=== PATIENT | male | born 1960 | race Caucasian/White ===

== ENCOUNTER → 2024-12-04 06:55 | Outpatient (REF) | payer OTHER, SELFPAY | LOC: RAD 06:55 | PROVIDERS: ATTENDING PHYSICIAN Nurse Practitioner Family; FAMILY PHYSICIAN Internal Medicine | DX: R22.0 Localized swelling, mass and lump, head (principal) | CPT/HCPCS: 70488; Q9967 ==

== ENCOUNTER → 2024-12-21 08:28 | Outpatient (REF) | payer OTHER, SELFPAY | LOC: RAD 08:28 | PROVIDERS: ATTENDING PHYSICIAN Internal Medicine Hematology & Oncology; FAMILY PHYSICIAN Internal Medicine | DX: C69.32 Malignant neoplasm of left choroid (principal); R22.0 Localized swelling, mass and lump, head | CPT/HCPCS: 71260; 74177; Q9967 ==

== ENCOUNTER → 2024-12-25 08:03 | Outpatient (REF) | payer OTHER, SELFPAY ==
[2024-12-25 08:47] VITALS: BP 177/80; BP_SYST 91; BMI 34.9
[2024-12-25 10:18] VITALS: BP 151/85
== END ==
LOC: RADI 08:03
PROVIDERS: ATTENDING PHYSICIAN Internal Medicine Hematology & Oncology; FAMILY PHYSICIAN Internal Medicine
DX: C43.39 Malignant melanoma of other parts of face (principal)
CPT/HCPCS: 88305; 20206; 76942; 88333; 88341; 88342; 99152

== ENCOUNTER → 2025-01-15 07:41 | Outpatient (REF) | payer OTHER, SELFPAY | LOC: PET 07:41 | PROVIDERS: ATTENDING PHYSICIAN Internal Medicine Hematology & Oncology | DX: C43.39 Malignant melanoma of other parts of face (principal) | CPT/HCPCS: 78816; A9552 ==

== ENCOUNTER 2025-04-19 12:48 | Inpatient (IN) | payer OTHER, SELFPAY ==
[2025-04-19 09:28] VITALS: BP 99/58
--- NOTE | 2025-04-19 09:41 | ED.GENMED ---
History of Present Illness
<Aaron Porter PA-C - Last Filed: 04/19/25 15:22>
General
Chief Complaint: Social Service Referral
Source: records and ambulance crew
Time Seen by Provider: 04/19/25 09:34
History of Present Illness
History of Present Illness:
64-year-old male with past medical history of malignant melanoma, currently on home hospice, presenting to the ER for inpatient hospice referral. Patient was reportedly very agitated at home, was treated with 8 mg of Dilaudid, 4 mg of Haldol and 4
mg of Ativan just prior to arrival. At time of my exam no family currently present but is reportedly on her way. Per EMS family was requesting inpatient hospice care as family was unable to manage at home.
Past History
<Aaron Porter PA-C - Last Filed: 04/19/25 15:22>
Past History
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
ED Past Surgical History: Orthopedic (Lumbar laminectomy 2016) and Other (Left thoracotomy 2014 for empyema; peptic ulcer surgery 2017)
Social History
Tobacco: Non-smoker
Alcohol: None
Drug: None
Personal:
Living: with family
Employment: Employed
Family History
Family History: Other (Noncontributory)
Review of Systems
<Aaron Porter PA-C - Last Filed: 04/19/25 15:22>
Review of Systems
All Other Systems: ROS reviewed and negative except as documented in HPI and ROS
Phy Exam
<Aaron Porter PA-C - Last Filed: 04/19/25 15:22>
Physical Exam
Physical Exam:
GENERAL: Obtunded, appears older than stated age
EYE: conjunctiva clear, left periorbital/maxillary edema
Head: Normocephalic atraumatic
NECK: Supple
ENT: Dry mucous membranes
LUNGS: Tachypneic
NEUROLOGICAL: Obtunded
SKIN: Hot to the touch, skin intact.
MUSCULOSKELETAL: well perfused.
PSYCH: Unable to assess
Scores
<Aaron Porter PA-C - Last Filed: 04/19/25 15:22>
Heart Failure Risk
Heart Failure Risk Score: Not Applicable
Heart Score for Chest Pain Patients
STEMI patient?: Not applicable
Withdrawal Assessment of Alcohol
Withdrawal Assessment Completed?: Not applicable
Course
<Aaron Porter PA-C - Last Filed: 04/19/25 15:22>
Orders/Labs/Results
Orders:
Orders
04/19/25 09:35
Case Management Consult ONCE
Case Management Consult: Hospice
Hospice: Evaluation and treat
04/19/25 09:54
Morphine Sulfate 4 mg IV NOW STA
04/19/25 11:06
Morphine Sulfate 4 mg .ROUTE .STK-MED ONE
04/19/25 11:07
Morphine Sulfate 4 mg IV NOW STA
04/19/25 11:29
Morphine Sulfate 4 mg IV NOW STA
04/19/25 12:09
Morphine Sulfate 4 mg IV NOW STA
04/19/25 12:11
Admit/Transfer Patient As Directed
Co-Sign Provider:
Level of Care: Inpatient admission
Assign to:: Medical/Surgical
Physician / Group: hospitalist-Jeovany
Diagnosis: inpt hospice
Reason for Hospitalization: unable to keep comfortable at home--IV morphine drip
Expected length of stay greater than two midnights?: Yes
ELOS- Estimated Length of Stay in days: 3
I certify the patient meets the requirements for IP care: Yes
04/19/25 12:12
Code Status As Directed
Resuscitation Status: Do not resuscitate
Reached after discussion with pt or family/Healthcare POA: Yes
PRN Pain Medication Management As Directed
May give lesser potent ordered pain med per pt: Yes
preference::
Protocol:: Medication orders for pain may be administered in a
manner that supports deferring to patient preference
when the pt is:
- Requesting an ordered lesser potent pain medication.
Least to most potent pain medications are defined
as: acetaminophen < NSAID < tramadol < opioids
(morphine, oxycodone, hydromorphone).
- Requesting a lesser dose of the same medication IF
ORDERED.
- Requesting a less intrusive route of administration
if both routes are prescribed by the provider (PO <
IV).
04/19/25 12:13
DNR Bracelet Application ONCE
04/19/25 12:56
Acetaminophen [Tylenol/Feverall] 650 mg RECTAL Q4HPRN PRN
Bisacodyl [Dulcolax] 10 mg RECTAL DAILYPRN PRN
Glycopyrrolate [Robinul] 0.2 mg IV Q4HPRN PRN
Haloperidol Lactate [Haldol] 1 mg IV Q4HPRN PRN
Morphine Sulfate 100 mg/100 ml [Morphine] 100 mg in 100 ml IV PER PROTOCOL
Begin protocol on step:: 4
Ondansetron Injectable [Zofran] 4 mg IV Q6HPRN PRN
04/19/25 12:56
VTE Contraindication Routine
VTE Mechanical Device Contraindication: Comfort Care mgmt
Pharmocologic Contraindication: Comfort Care mgmt
Activity As Directed
Activity Level: Bedrest
Comfort Measures As Directed
Comment: Pain and Dyspnea assessment every 4 hours
End of Life Symptom Assessment Q4
Vital Signs As Directed
Frequency: Per unit guidelines
04/19/25 13:06
diazePAM [Valium Injection] 5 mg IV Q2HPRN PRN
04/19/25 13:07
Morphine Sulfate See Protocol IV [id number] PRN
Begin protocol on step:: refer to Morphine infusion order
04/19/25 Dinner
Clear Liquid
At Your Request: Full Participation
Does patient need a safe tray?: No
Vital Signs
Initial and Last Documented VS:
Initial Vital Signs
Temp Pulse Resp BP Pulse Ox
101.5 F H 124 28 99/58 87
04/19/25 09:28 04/19/25 09:28 04/19/25 09:28 04/19/25 09:28 04/19/25 09:28
Last Documented Vital Signs
Temp Pulse Resp BP Pulse Ox
101.2 F H 124 20 89/51 89
04/19/25 13:05 04/19/25 13:05 04/19/25 13:05 04/19/25 13:05 04/19/25 13:05
<Saima Wayne, DO - Last Filed: 04/19/25 12:09>
Orders/Labs/Results
Orders:
Orders
04/19/25 09:35
Case Management Consult ONCE
Case Management Consult: Hospice
Hospice: Evaluation and treat
04/19/25 09:54
Morphine Sulfate 4 mg IV NOW STA
04/19/25 11:06
Morphine Sulfate 4 mg .ROUTE .STK-MED ONE
04/19/25 11:07
Morphine Sulfate 4 mg IV NOW STA
04/19/25 11:29
Morphine Sulfate 4 mg IV NOW STA
04/19/25 12:09
Morphine Sulfate 4 mg IV NOW STA
04/19/25 12:11
Admit/Transfer Patient As Directed
Co-Sign Provider:
Level of Care: Inpatient admission
Assign to:: Medical/Surgical
Physician / Group: hospitalist-Jeovany
Diagnosis: inpt hospice
Reason for Hospitalization: unable to keep comfortable at home--IV morphine drip
Expected length of stay greater than two midnights?: Yes
ELOS- Estimated Length of Stay in days: 3
I certify the patient meets the requirements for IP care: Yes
04/19/25 12:12
Code Status As Directed
Resuscitation Status: Do not resuscitate
Reached after discussion with pt or family/Healthcare POA: Yes
PRN Pain Medication Management As Directed
May give lesser potent ordered pain med per pt: Yes
preference::
Protocol:: Medication orders for pain may be administered in a
manner that supports deferring to patient preference
when the pt is:
- Requesting an ordered lesser potent pain medication.
Least to most potent pain medications are defined
as: acetaminophen < NSAID < tramadol < opioids
(morphine, oxycodone, hydromorphone).
- Requesting a lesser dose of the same medication IF
ORDERED.
- Requesting a less intrusive route of administration
if both routes are prescribed by the provider (PO <
IV).
04/19/25 12:13
DNR Bracelet Application ONCE
04/19/25 12:56
Acetaminophen [Tylenol/Feverall] 650 mg RECTAL Q4HPRN PRN
Bisacodyl [Dulcolax] 10 mg RECTAL DAILYPRN PRN
Glycopyrrolate [Robinul] 0.2 mg IV Q4HPRN PRN
Haloperidol Lactate [Haldol] 1 mg IV Q4HPRN PRN
Morphine Sulfate 100 mg/100 ml [Morphine] 100 mg in 100 ml IV PER PROTOCOL
Begin protocol on step:: 4
Ondansetron Injectable [Zofran] 4 mg IV Q6HPRN PRN
04/19/25 12:56
VTE Contraindication Routine
VTE Mechanical Device Contraindication: Comfort Care mgmt
Pharmocologic Contraindication: Comfort Care mgmt
Activity As Directed
Activity Level: Bedrest
Comfort Measures As Directed
Comment: Pain and Dyspnea assessment every 4 hours
End of Life Symptom Assessment Q4
Vital Signs As Directed
Frequency: Per unit guidelines
04/19/25 13:06
diazePAM [Valium Injection] 5 mg IV Q2HPRN PRN
04/19/25 13:07
Morphine Sulfate See Protocol IV [id number] PRN
Begin protocol on step:: refer to Morphine infusion order
04/19/25 Dinner
Clear Liquid
At Your Request: Full Participation
Does patient need a safe tray?: No
Vital Signs
Initial and Last Documented VS:
Initial Vital Signs
Temp Pulse Resp BP Pulse Ox
101.5 F H 124 28 99/58 87
04/19/25 09:28 04/19/25 09:28 04/19/25 09:28 04/19/25 09:28 04/19/25 09:28
Last Documented Vital Signs
Temp Pulse Resp BP Pulse Ox
101.2 F H 124 20 89/51 89
04/19/25 13:05 04/19/25 13:05 04/19/25 13:05 04/19/25 13:05 04/19/25 13:05
<Aaron Porter PA-C - Last Filed: 04/19/25 15:22>
MDM/Problems Addressed
MDM/Problems Addressed:
64-year-old male presenting to the emergency department for evaluation hospice treatment. Patient received multiple medications prior to arrival, currently appearing in no acute distress. Upon arrival vital signs noted but given patient on hospice
care will defer any further management at this time. Case management consult placed for hospice care and hospice team is reportedly already aware. Disposition pending.
<Aaron Porter PA-C - Last Filed: 04/19/25 15:22>
*Pulse Oximetry
SaO2: 87
Oxygen Mode of Delivery: Room air
Patient hypoxic: yes
*Critical Care Note
Total Time (30-74mins, 75-104mins- exclusive of procedures): Not Applicable
Data Reviewed
Review of Other/Old Records Reveals: Records
<Aaron Porter PA-C - Last Filed: 04/19/25 15:22>
Patient Management
Discussion with other providers: Hospitalist
Escalation/DeEscalation of care consider admission/obs:
Patient seen by the hospitalist team who will place the patient up on the hospice floor, hospitalist team was notified and accepts for continued evaluation. We did treat patient here with additional morphine for continued comfort while in the ED.
ED Attending Note
<Aaron Porter PA-C - Last Filed: 04/19/25 15:22>
-
Portions of this chart may have been created with voice recognition software.� Occasional wrong word or��sound alike� substitutions may have occurred due to the inherent limitations of voice recognition software.
<Saima Wayne DO - Last Filed: 04/19/25 12:09>
ED Attending Note
Patient seen and examined by attending physician: Yes
I performed the substantive portion of visit, reviewed & personally made and approve the management plan that is documented in note by myself or ASHTYN.: Yes
I performed a history and physical exam of patient and discussed management with resident, I reviewed resident's note and agree with documented findings and plan of care.: Yes
ED Attending Note:
64-year-old male brought to the ER for end-of-life care. He has been on home hospice but requiring additional medications at home prompting referral for inpatient hospice. Patient is resting comfortably. Family is present at bedside. Vital signs
reviewed. I reviewed full patient presentation with physician judicial assistant. Hospitalist is currently at bedside placing orders. Hospice consult placed. Patient admitted
Discharge Plan
Departure
Patient Disposition: Hospice - Inpatient DH
Date of Disposition: 04/19/25
Time of Disposition: 10:32
Discharge Problem:
Admission for end of life care
Interventions
Interventions:
*Risk Screen - Suicide Last Done: 04/19/25 09:28
*General Assessment Last Done: 04/19/25 09:28
*Nursing Disposition Last Done: 04/19/25 13:11
ED-Psychological Assessment Last Done: 04/19/25 09:54
Discharge Date and Time
Discharge Date/Time: 04/19/25 13:12
[2025-04-19] MEDS: MORPHINE SULFATE 4 MG IV ×4 (09:57→12:10)
--- NOTE | 2025-04-19 10:05 | EDCM ---
CM received consult. I spoke to pt's nurse Carley, she already reached out to Florence from Hospice. Florence is coming down to see the patient.
--- NOTE | 2025-04-19 12:17 | HPS.HSE ---
Addendum entered and electronically signed by Elen Thayer MD 04/19/25 12:32:
After speaking with pharmacy will decrease dose to 6 mg/h which would be a step 4 rather than step 6.
Original Note:
Family Physician
-
Family Physician: Anjelica Smith
Chief Complaint
-
terminal agitation
History of Present Illness
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 Patient's at the bedside states that
the patient was combative and throwing things, Wilson catheter and rectal tubes placed for comfort which he pulled out, hospice nurse was out to see them 3 times prior to this morning. It was then recommended since he is difficult to manage at home
with oral medications that he be brought in for inpatient hospice.
Medical History
Past Medical History
Past Medical History: Reports Other
Additional Past Medical History:
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
Essential hypertension
Paroxysmal atrial fibrillation
Gastroesophageal reflux disease obesity
Past Surgical History: Reports Other
Additional Past Surgical History:
Thoracotomy
Left eye in new chelation
Paraesophageal hernia repair with bilateral truncal vagotomy and subtotal gastrectomy with Navi-en-Y reconstruction
Duodenal stump leak status post closure
Social History
Unable to obtain full social history at this time due to: Acuity
Tobacco: Non-smoker
Alcohol: None
Personal:
Family History
Family History: Not pertinent
Allergies / Home Medications
Allergies reflects when Allergies were last updated in [employer].
Home Medications with original date entered in [employer]
Allergy/Medication List:
Allergies
Allergy/AdvReac Type Severity Reaction Status Date / Time
ceftriaxone Allergy Rash Verified 04/19/25 09:31
Home Medications
lisinopril 40 mg tablet 40 mg PO DAILY 12/25/24
amlodipine 5 mg tablet (Norvasc) 5 mg PO DAILY 04/19/25
hydromorphone 1 mg/mL oral liquid 1 mg PO Q3HPRN PRN severe pains 04/19/25
lorazepam 2 mg/mL oral concentrate 0.25 mg PO Q4HPRN PRN anxiety 04/19/25
Review of Systems
-
Unable to obtain full review of systems at this time due to: Patient Non-verbal
Physical Exam
Vital Signs
Vital Signs
Temp Pulse Resp BP Pulse Ox
101.5 F H 121 34 99/58 81
04/19/25 09:28 04/19/25 11:32 04/19/25 11:32 04/19/25 09:28 04/19/25 11:32
Physical Exam
General: Well Developed, Well Nourished and Appears in Distress
HEENT: NormoCephalic, Atraumatic and Other (left eye enucleation--left cheek prominence)
Respiratory: Clear; No Wheezes or Rhonchi
Cardiac: S1/S2 and Regular Rhythm
GI: Soft, Non Tender and Non Distended; No Normal Bowel Sounds (Quiet hypoactive)
Musculoskeletal: No Clubbing, No Cyanosis and No Edema
Neuro: No Awake or Alert
Psych: Calm
Impression/Plan
-
pt is a 64 year old male
metastatic melanoma--unable to be cared for at home--evaluated by hospice and meets inpt criteria--ADMIT TO [address] [place] [address] for hospice--patient has received 4 mg of morphine in 1-1/2 hours and is due for more currently--will start on a morphine drip at
step 6--can increase as needed to keep patient comfortable--IV Haldol, IV Ativan, rectal Tylenol, IV glycopyrrolate--for symptom management
DVT proph--not indicated
CODE STATUS--DNR
--- NOTE | 2025-04-19 12:42 | HOSPNOTE ---
Spoke to Dr Thayer who will be admitting patient onto inpatient hospice. Patient was on hospice services at home and had three visits last evening for extreme pain and agitation. Patient was unable to be managed properly at home so the decision
was made to bring patient into the hospital begin IV medications. Patient will be admitted onto [facility] and will be seen daily by hospice.
[2025-04-19 13:05] VITALS: BP 89/51
[2025-04-19] MEDS: MORPHINE 100 IV (13:20)
--- NOTE | 2025-04-19 14:04 | CM ---
Reviewed the chart notes. Patient brought to ED for inpatient hospice. Patient resides with spouse in a mobile home. Patient was with Hospice as outpatient. CM continues to be available to patient/family.
Plan: [facility].
[2025-04-19] MEDS: VALIUM INJECTION 5 MG IV (14:52)
[2025-04-19] MEDS: MORPHINE SULFATE 6 MG IV ×3 (15:51→23:09)
--- NOTE | 2025-04-19 16:28 | PTCARENOTE ---
Patient inpatient hospice. Started on step 4 morphine gtt. Patient resting comfortably in bed. updated over the phone.
[2025-04-19 23:00] VITALS: BP 91/59
[2025-04-19] MEDS: TYLENOL/FEVERALL 650 MG RECTAL (23:15)
[2025-04-20] MEDS: MORPHINE SULFATE 6 MG IV ×3 (02:00→04:46)
[2025-04-20] MEDS: MORPHINE 100 IV (03:58)
[2025-04-20] MEDS: TYLENOL/FEVERALL 650 MG RECTAL (05:48)
[2025-04-20] MEDS: ROBINUL 0.2 MG IV (05:49)
[2025-04-20] MEDS: MORPHINE SULFATE 8 MG IV (06:07)
[2025-04-20 07:00] VITALS: BP 82/52
[2025-04-20] MEDS: VALIUM INJECTION 5 MG IV (08:13)
--- NOTE | 2025-04-20 08:35 | CM ---
Patient being followed with Hospice, patient this am. Physician called to patient and update provided. mess cook alerted. CM will follow for additional supports needed.
Plan;
--- NOTE | 2025-04-20 08:37 | W.PN.DEATH ---
Pronouncement of
-
Called to see patient to pronounce.
No spontaneous heart tones or respirations noted.
Patient not responsive to verbal stimuli.
Patient is pronounced .
Time of : 08:30
Date of : 04/20/25
Cause of : metastatic melanoma
Family Notified: Yes
--- NOTE | 2025-04-20 14:02 | W.DCSUMMARY ---
Discharge Summary
Discharge Data
Date of Admission: 04/19/25
Date of Discharge: 04/20/25
-
Pending Results: No
Hospital Course
Primary care physician : Anjelica Smith
Principal Discharge diagnosis : Metastatic melanoma
Hospital Course : Patient is a 64-year-old male with a history of left eye melanoma diagnosed approximately 2022 who then developed metastatic disease to the left cheek. He was placed on home hospice. Unfortunately, patient was combative and
throwing things, Wilson catheter and rectal tubes placed for comfort he pulled out, hospice nurse was out to see them 3 times prior to admitting him to the hospital. He was brought in on inpatient hospice for symptom management.
Patient was started on a morphine drip for comfort. He was found this morning at 8:30 AM by myself. Family has been notified as well as hospice team.
Time for discharge including certificate completion is 35 minutes.
Discharge Plan
-
Patient Disposition:
Date/Time
Date/Time: 04/20/25 08:30
Discharge Date and Time
Discharge Date/Time: 04/20/25 12:53
Print Language: SLOVAK
== END 2025-04-20 08:30 | disposition expired | DRG 951 ==
LOC: 2 NORTH 12:48
PROVIDERS: ADMITTING PHYSICIAN Internal Medicine; EMERGENCY PHYSICIAN Emergency Medicine
DX: Z51.5 Encounter for palliative care (principal); C79.2 Secondary malignant neoplasm of skin; I10 Essential (primary) hypertension; I48.0 Paroxysmal atrial fibrillation; K21.9 Gastro-esophageal reflux disease without esophagitis; Z66 Do not resuscitate; Z85.840 Personal history of malignant neoplasm of eye; Z87.11 Personal history of peptic ulcer disease
CPT/HCPCS: 96374; 96376; 99284